=== PATIENT | female | born 1995 | race Caucasian/White ===

== ENCOUNTER 2018-04-22 11:04 | Emergency (ER) | payer BC ==
[~2018-04-22] VITALS: Ht 152.4 cm; Wt 60.8 kg
[2018-04-22 11:12] VITALS: Ht 152.4 cm; Wt 60.8 kg
[2018-04-22 12:42] LABS: CALCIUM 8.4 mg/dL (8.5-10.1); CARBON DIOXIDE 25.5 mmol/L (21-32); CHLORIDE SERUM 106 mmol/L (98-107); CREATININE SERUM 0.6 mg/dL (0.6-1.0); GFR1 > 60 mL/min; GLUCOSE SERUM 91 mg/dL (74-106); POTASSIUM SERUM 3.7 mmol/L (3.5-5.1); SODIUM SERUM 139 mmol/L (136-145)
[2018-04-22 12:49] LABS: ALBUMIN 3.7 g/dL (3.4-5.0); ALKALINE PHOSPHATASE 61 U/L (46-116); ALT/SGPT 15 U/L (14-59); AST/SGOT 14 U/L (15-37); BASOPHIL % 0.6 % (0-2); BILIRUBIN TOTAL 0.4 mg/dL (0.20-1.00); C REACTIVE PROTEIN 0.4 mg/dL (<=0.9); PLATELET COUNT 312 x10^3mcL (130-400); RED CELL DISTRIBUTION WIDTH 13.3 % (11.5-14.5); TOTAL PROTEIN, SERUM 7.5 g/dL (6.4-8.2)
[2018-04-22 13:51] LABS: ERYTHROCYTE SED RATE 17 mm/hr (0-20)
[2018-04-22 16:09] VITALS: BP 112/62
== END 2018-04-22 16:09 | disposition home or self-care (01) ==
LOC: ED 11:04
PROVIDERS: Specialist
DX: H53.8 Other visual disturbances (principal); H57.89 Other specified disorders of eye and adnexa
CPT/HCPCS: 36415; Q9967